=== PATIENT | male | born 1985 | race African-American/Black ===

== ENCOUNTER 2023-06-30 22:34 | Emergency (ER) | payer OTHER ==
[2023-06-30] MEDS ORDERED: Cephalexin 250 MG CAP ONE (23:49)
[2023-06-30] MEDS ORDERED: Ibuprofen 200 MG TAB ONE (23:49)
== END 2023-06-30 23:52 | disposition home or self-care (01) ==
LOC: CSHERS 22:34
DX: L03.011 Cellulitis of right finger (principal); F17.210 Nicotine dependence, cigarettes, uncomplicated
CPT/HCPCS: 10060